=== PATIENT | male | born 1960 | race Caucasian/White ===

== ENCOUNTER → 2020-09-22 09:04 | Outpatient (CLI) | payer OTHER, SELFPAY ==
--- NOTE | ~2020-09-22 | MR_ITS ---
EXAMINATION: MR cervical spine wo con EXAM DATE: 09/22/2020 10:27 INDICATION: Left-sided neck pain, left shoulder pain, tingling. TECHNIQUE: Multi-sequential, multiplanar MR images of the cervical spine were obtained without contra st. Axial T2, axial T2 MERGE sequence. Sagittal T1, T2, T2 fat saturation images also obtained. Th ere is no prior study for comparison. FINDINGS: There is moderate loss of the disc height from C5 through 7, mild disc disease at the othe r levels. There is 2 mm anterolisthesis C5 on C6 and C6 on C7. The spinal cord signal intensity and i ntrinsic morphology is normal. Cervicomedullary junction is normal in appearance. Paraspinal soft tis mya is unremarkable. Level by level evaluation: C2-C3: Disc does not extend beyond the endplate margin. Uncovertebral joint arthropathy: Mild bilateral. Facet joint arthropathy: Mild bilateral. Neural foraminal stenosis: No stenosis. Central canal stenosis: No stenosis. C3-C4: There is a mild diffuse disc bulge. Uncovertebral joint arthropathy: Moderate right, mild left. Facet joint arthropathy: Severe right, moderate left. Neural foraminal stenosis: Moderate right, mild left. Central canal stenosis: Mild. C4-C5: There is a mild diffuse disc bulge. Uncovertebral joint arthropathy: Mild bilateral. Facet joint arthropathy: Severe left, mild to moderate right. Neural foraminal stenosis: Moderate bilateral. Central canal stenosis: Mild. C5-C6: There is a mild diffuse disc bulge. Uncovertebral joint arthropathy: Moderate right, mild left. Facet joint arthropathy: Moderate to severe bilateral . Neural foraminal stenosis: Moderate to severe right, mild to moderate left. Central canal stenosis: Mild. C6-C7: There is a mild diffuse disc bulge. Uncovertebral joint arthropathy: Mild to moderate bilateral. Facet joint arthropathy: Moderate to severe bilateral. Neural foraminal stenosis: Mild to moderate left, mild right. Central canal stenosis: Mild. C7-T1: Disc does not extend beyond the endplate margin. Uncovertebral joint arthropathy: Mild bilateral. Facet joint arthropathy: Moderate to severe right, mild to moderate left. Neural foraminal stenosis: Mild right. Central canal stenosis: No stenosis. IMPRESSION: Advanced cervical arthropathy causing stenosis as above. Reviewed, dictated and finalized at location B.
== END ==
PROVIDERS: PCP Family Medicine; Visit Provider Family Medicine
DX: M54.12 Radiculopathy, cervical region (principal); M47.812 Spondylosis without myelopathy or radiculopathy, cervical region
CPT/HCPCS: 72141

== ENCOUNTER 2021-10-23 08:57 | Emergency (ER) | payer OTHER, SELFPAY ==
--- NOTE | 2021-10-23 09:08 | ED.ANIMALBIT ---
HPI - Animal Bite General Chief Complaint: Skin/Abscess/Foreign Body Stated Complaint: Bug bite Time Seen by Provider: 10/23/21 09:08 Source: patient Mode of arrival: ambulatory History of Present Illness HPI narrative: 60-year-old male with a history diabetes mellitus, dyslipidemia cervical radiculopathy presents to the ER with a 3 day history of -- circular erythematous rash with central clearing around the medial ankle. progressively increasing in size. there appears to be a puncture lesion in the center of the rash denies any pain or itching. No fever or chills Onset (ago): day(s) ( present for the past 3 days) Animal: other ( appears to be an insect bite) Location - Extremities: Left: ankle Related Data Home Medications Medication Instructions Recorded Confirmed fluticasone propionate 50 1 spray intranasal BID 09/12/20 10/23/21 mcg/actuation nasal spray,suspension Allergies Allergy/AdvReac Type Severity Reaction Status Date / Time Penicillins Allergy Mild Unknown Verified 06/01/19 13:35 Review of Systems Review of Systems: All systems reviewed & are unremarkable except as noted in HPI and below Constitutional: Constitutional: Reports as per HPI and Reports no additional constitutional complaints Eyes: Eyes: Reports as per HPI and Reports no additional eye complaints ENT: Reports system reviewed and no additional complaints, except as documented and Reports as per HPI Cardiovascular: Cardiovascular: Reports as per HPI and Reports no additional cardiovascular complaints Respiratory: Respiratory: Reports as per HPI and Reports no additional respiratory complaints Gastrointestinal: Gastrointestinal: Reports as per HPI and Reports no additional gastrointestinal complaints Genitourinary: Genitourinary: Reports no additional male genitourinary complaints and Reports as per HPI Musculoskeletal: Musculoskeletal: Reports no additional musculoskeletal complaints and Reports as per HPI Integumentary/Breasts: Skin/Breast: Reports system reviewed and no additional complaints, except as docu Comments: 8 cm circular erythematous rash with central clearing. There is a bite janeth in the center . No regional lymphadenopathy Neurologic: Reports system reviewed and no additional complaints, except as documented and Reports as per HPI Psychiatric: Psychiatric: Reports no additional psychiatric complaints and Reports as per HPI Endocrine: Endocrine: Reports no additional endocrine complaints and Reports as per HPI Hematologic/Lymphatic: Hematologic/Lymphatic: Reports no additional hematologic/lymphatic complaints and Reports as per HPI Allergic/Immunologic: Allergic/Immunologic: Reports no additional allergic/immunologic complaints and Reports as per HPI [facility] Past Medical History Medical History Abnormal serum iron level Iron elevated at 197 with elevated saturation at 66% with ferritin normal at 312 10/02/2021. BMI 25.0-25.9,adult BPH without obstruction/lower urinary tract symptoms Chronic right shoulder pain Controlled diabetes mellitus Glucose 124 with hemoglobin A1c 6.5 and urine microalbumin ratio of 3 on 10/02/2021. Gastro-esophageal reflux disease without esophagitis Insomnia Male erectile dysfunction, unspecified Mixed hyperlipidemia Total cholesterol 122, triglycerides 130, HDL 39, LDL 62 on 10/02/2021. Overweight (BMI 25.0-29.9) Radiculitis of left cervical region MRI on 09/22/2020 with moderate to severe neural foraminal stenosis bilaterally from C3 through T1 Seasonal allergic rhinitis Family History Family History Mother Cerebrovascular accident Father Cancer Social History Social History Smoking status: Never smoker Alcohol intake: current Alcohol use details: drinks a small amount every couple months S
[2021-10-23 09:16] VITALS: BP 123/77; PULSE 71; RESP 16; TEMP 36.2; O2SAT 98
[2021-10-23] MEDS: TETANUS,DIPHTHERIA,AC PERTUSSIS ADULT 0.5 ML (ADACEL) IM (09:57)
== END 2021-10-23 10:05 | disposition home or self-care (01) ==
PROVIDERS: Emergency Provider Internal Medicine Critical Care Medicine; PCP Family Medicine
DX: L03.90 Cellulitis, unspecified (principal)
CPT/HCPCS: 90471; 90715; 99283

== ENCOUNTER 2022-07-16 06:33 | Outpatient (CLI) | payer OTHER, SELFPAY ==
--- NOTE | 2022-07-16 | ECG_ITS ---
Measurements Intervals [place] Rate: 54 P: 27 SD: 191 QRS: -50 QRSD: 116 T: -4 QT: 397 QTc: 379 Interpretive Statements SINUS BRADYCARDIA LEFT ANTERIOR FASCICULAR BLOCK MODERATE VOLTAGE CRITERIA FOR LVH, CONSIDER NORMAL VARIANT CaNNOT RULE OUT ANTEROSEPTAL INFARCTION, OF INDETERMINATE AGE ABNORMAL ECG NO PREVIOUS ECG AVAILABLE FOR COMPARISON Electronically Signed On 07-16-2022 14:13:09 HEAVY TRUCK TECHNICIAN by Houston Dorman M.D.
== END 2022-07-16 06:34 | disposition home or self-care (01) ==
LOC: ANHLAB 06:38 → ANHCARD 06:39
PROVIDERS: PCP Family Medicine; Visit Provider Orthopaedic Surgery
DX: Z01.818 Encounter for other preprocedural examination (principal); I44.4 Left anterior fascicular block; R00.1 Bradycardia, unspecified
CPT/HCPCS: 93005

== ENCOUNTER → 2023-03-21 07:59 | Outpatient (CLI) | payer OTHER, SELFPAY ==
--- NOTE | ~2023-03-21 | MR_ITS ---
EXAMINATION: MR cervical spine wo con DATE: 03/21/2023 08:29 INDICATION: Cervical radiculopathy. Left neck pain. TECHNIQUE: Magnetic resonance imaging (MRI) of the cervical spine was performed without intravenous c ontrast. COMPARISON: Cervical spine MRI 09/22/2020 FINDINGS: There is 2 mm anterolisthesis of C6 on C7. There is mild chronic anterior wedging of T1 devyn tebral body. There is mildly decreased disc height at C4-C5 and moderately decreased disc height at C 5-C6 and C6-C7. The following disc levels are specifically discussed: C2-C3: The disc does not extend beyond the endplate margin. There is no uncovertebral joint osteoarth ritis. There is mild bilateral facet joint osteoarthritis. There is no neural foraminal stenosis. The re is no central canal stenosis. C3-C4: The disc does not extend beyond the endplate margin. There is severe right and moderate left u ncovertebral joint osteoarthritis. There is severe bilateral facet joint osteoarthritis. There is mod erate right and mild left neural foraminal stenosis. There is no central canal stenosis. C4-C5: The disc is bulging. There is moderate bilateral uncovertebral joint osteoarthritis. There is severe bilateral facet joint osteoarthritis. There is moderate bilateral neural foraminal stenosis. T here is mild central canal stenosis with ventral indentation of the spinal cord. C5-C6: The disc is bulging. There is severe bilateral uncovertebral joint osteoarthritis. There is se raul bilateral facet joint osteoarthritis. There is moderate right and mild left neural foraminal andreina nosis. There is mild central canal stenosis. C6-C7: The disc is bulging. There is mild bilateral uncovertebral joint osteoarthritis. There is isaias re bilateral facet joint osteoarthritis. There is mild bilateral neural foraminal stenosis. There is mild central canal stenosis. C7-T1: The disc does not extend beyond the endplate margin. There is no uncovertebral joint osteoarth ritis. There is severe bilateral facet joint osteoarthritis. There is mild bilateral neural foraminal stenosis. There is no central canal stenosis. IMPRESSION: 1. Moderate cervical spondylosis, stable from 09/22/2020. Reviewed, dictated and finalized at location E.
== END ==
PROVIDERS: PCP Nurse Practitioner Family; Visit Provider Nurse Practitioner Family
DX: M54.12 Radiculopathy, cervical region (principal); M43.02 Spondylolysis, cervical region
CPT/HCPCS: 72141

== ENCOUNTER 2023-09-05 09:30 | Outpatient (CLI) | payer OTHER, SELFPAY ==
--- NOTE | ~2023-09-05 | MR_ITS ---
MRI of the right knee Clinical history: Medial meniscal tear Technique: Coronal proton density and proton density-weighted images, sagittal proton-density and T2 fat-sat images, and axial proton-density fat-saturated images were acquired. Findings: Anterior and posterior cruciate ligaments are intact. Medial collateral ligament and the la teral collateral ligament, as are intact. Popliteus tendon is intact. Medial and lateral menisci are intact, without evidence of tear. There is diffuse grade 4 chondral malacia the lateral patellar facet extending to the patellar apex. There is extensive grade IV chondromalacia of the lateral femoral trochlea. Articular cartilage in th e medial lateral compartments is relatively well-preserved, with focal moderate thinning at the media l joint line. Small patellar osteophytes are present. Extensor mechanism is intact. Minimal joint effusion present. There are small Harrell's cyst present. T here is an additional complex multiseptated ganglion cyst posterior to the knee, measuring approximat jaleel 3.5 cm in craniocaudal extent. There are several loose bodies posterior to the PCL, largest measu ring 1.4 cm in diameter. Impression: Advanced degenerative change of the patellofemoral compartment, as detailed above. Minimal degenerati ve change of the medial and lateral compartment. Loose bodies in the posterior aspect of the knee, as detailed above. 3.5 cm multiseptated ganglion cyst posterior to the knee with additional small Harrell cyst present. Cruciate ligaments, collateral ligaments, and menisci appear intact. Reviewed, dictated and finalized at [facility]. Impression: Advanced degenerative change of the patellofemoral compartment, as detailed abo ve. Minimal degenerative change of the medial and lateral compartment. Loose bodies in the posterior aspect of the knee, as detailed above. 3.5 cm multiseptated ganglion cyst posterior to the knee with additional small Harrell cyst present. Cruciate ligaments, collateral ligaments, and menisci appear intact.
== END 2023-09-05 09:31 ==
LOC: MICIMG 09:31
PROVIDERS: PCP Orthopaedic Surgery; Visit Provider Orthopaedic Surgery
DX: S83.241A Other tear of medial meniscus, current injury, right knee, initial encounter (principal); M22.2X1 Patellofemoral disorders, right knee; M23.41 Loose body in knee, right knee; M67.461 Ganglion, right knee; M71.21 Synovial cyst of popliteal space [Baker], right knee; X58.XXXA Exposure to other specified factors, initial encounter
CPT/HCPCS: 73721

== ENCOUNTER 2024-08-05 13:14 | Outpatient (CLI) | payer OTHER, SELFPAY ==
--- NOTE | 2024-08-05 14:30 | NEURO_ITS ---
Impression: # Nondiabetic and long-term martel by profession, complains of numbness and stiffness of his hands. ? # Mild Carpal Tunnel Syndrome. # No ulnar neuropathy. ? # Normal needle/EMG exam. Nerve Conduction Studies Anti Sensory Summary Table ?Stim Site NR Peak (ms) P-T Amp (?V) Site1 Site2 Delta-P (ms) Dist (cm) Jordy (m/s) Left Median Anti Sensory (2-3nd Digit) Wrist ? 3.3 46.0 Wrist 2-3nd Digit 3.3 14.0 42 Wrist ? 3.2 48.3 Wrist 2-3nd Digit 3.3 14.0 42 Right Median Anti Sensory (2-3nd Digit) Wrist ? 3.2 39.3 Wrist 2-3nd Digit 3.2 14.0 44 Wrist ? 3.1 32.8 Wrist 2-3nd Digit 3.2 14.0 44 Left Radial Anti Sensory (Base 1st Digit) Wrist ? 2.1 39.1 Wrist Base 1st Digit 2.1 0.0 Right Radial Anti Sensory (Base 1st Digit) Wrist ? 2.4 17.6 Wrist Base 1st Digit 2.4 0.0 Left Ulnar Anti Sensory (5th Digit) Wrist ? 2.5 15.3 Wrist 5th Digit 2.5 14.0 56 Right Ulnar Anti Sensory (5th Digit) Wrist ? 2.4 33.1 Wrist 5th Digit 2.4 14.0 58 Motor Summary Table ?Stim Site NR Onset (ms) O-P Amp (mV) Site1 Site2 Delta-0 (ms) Dist (cm) Jordy (m/s) Left Median Motor (Abd Poll Brev) Wrist ? 4.3 2.3 Elbow Wrist 5.0 30.0 60 Elbow ? 9.3 8.7 Right Median Motor (Abd Poll Brev) Wrist ? 3.4 3.1 Elbow Wrist 4.9 29.0 59 Elbow ? 8.3 3.3 Left Ulnar Motor (Abd Dig Minimi) Wrist ? 2.3 8.4 A Elbow Wrist 5.0 31.0 62 A Elbow ? 7.3 6.3 B Elbow Wrist 3.4 21.0 62 B Elbow ? 5.7 4.9 Right Ulnar Motor (Abd Dig Minimi) Wrist ? 2.0 8.9 A Elbow Wrist 4.9 30.0 61 A Elbow ? 6.9 11.2 F Wave Studies ?NR F-Lat (ms) L-R F-Lat (ms) Left Median (Mrkrs) (Abd Poll Brev) ? 29.21 0.39 Right Median (Mrkrs) (Abd Poll Brev) ? 28.81 0.39 Left Ulnar (Mrkrs) (Abd Dig Min) ? 28.40 0.41 Right Ulnar (Mrkrs) (Abd Dig Min) ? 27.99 0.41 EMG ?Side Muscle Nerve Root Ins Act Fibs Amp Dur Recrt Comment Right 1stDorInt Ulnar C8-T1 Nml Nml Nml Nml Nml Right Ext Indicis Radial (Post Int) C7-8 Nml Nml Nml Nml Nml Right Ext Digitorum Radial (Post Int) C7-8 Nml Nml Nml Nml Nml Right BrachioRad Radial C5-6 Nml Nml Nml Nml Nml Right PronatorTeres Median C6-7 Nml Nml Nml Nml Nml Right Abd Poll Brev Median C8-T1 Nml Nml Nml Nml Nml Right ABD Dig Min Ulnar C8-T1 Nml Nml Nml Nml Nml Left 1stDorInt Ulnar C8-T1 Nml Nml Nml Nml Nml Left Ext Indicis Radial (Post Int) C7-8 Nml Nml Nml Nml Nml Left Ext Digitorum Radial (Post Int) C7-8 Nml Nml Nml Nml Nml Left BrachioRad Radial C5-6 Nml Nml Nml Nml Nml Left PronatorTeres Median C6-7 Nml Nml Nml Nml Nml Left Abd Poll Brev Median C8-T1 Nml Nml Nml Nml Nml Left ABD Dig Min Ulnar C8-T1 Nml Nml Nml Nml Nml MTDD
--- OUTSIDE RECORDS SUMMARY | 2024-08-05 14:40 | XMS_ITS | Clinical Summary ---
Author Organization [facility] Address [address], [address] [address] Phone Care Team Providers Care Electrical Plumbing Supervisor Name Role Phone Tom Travis MD Primary Care Provider [phone] Allergies No known active allergies Medications naproxen (NAPROSYN) 500 MG Tablet Take 500 mg by mouth daily as needed. (Takes 1 tab approx every 2-3 weeks as needed.) Active OMEPRAZOLE PO Take 20 mg by mouth daily. Active fenofibrate (TRICOR) 145 MG Tablet Take 145 mg by mouth daily. Active metFORMIN (GLUCOPHAGE) 500 MG Tablet Take 1,500 mg by mouth daily. Takes at dinner time. Active Acetaminophen-Ca ffeine (EXCEDRIN TENSION HEADACHE PO) Take by mouth. 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 file Not on adam e Last Filed Vital Signs Vital Sign Reading Time Taken Comments Blood Pressure 127/79 10/23/2018 9:30 AM CDT Pulse 54 10/23/2018 9:30 AM CDT Temperature 36 C (96.8 F) 10/23/2018 9:30 AM CDT Respiratory Rate 15 10/23/2018 9:30 AM CDT Oxygen Saturation 100% 10/23/2018 9:30 AM CDT Inhaled Oxygen Concentration - - Weight 83.9 kg (185 lb) 10/23/2018 7:30 AM CDT Height 177.8 cm (5' 10 ) 10/23/2018 7:30 AM CDT Body Mass Index 26.54 10/23/2018 7:30 AM CDT Plan of Treatment Health Maintenance Due Date Last Done Comments Hepatitis C Virus (HCV) Screening 1960 TdaP Immunization 1960 Cologuard 2010 Immunochemical Fecal Occult Blood 2010 Pneumococcal Immunization (5 0+ years) (1 of 1 - PCV) 2010 Zoster Immunization (1 of 2) 2010 PSA Discussion 12/24/2015 Colonoscopy 10/24/2023 10/23/2018 Colorectal Cancer Screening 10/24/2023 Influenza Immunization (#1) 2024 SARS-COV-2 Immunization ( - 2023-25 season) 2024 Respiratory Syncytial Virus (RSV) Immunization (Adult) (1 - 1-dose 75+ series) 12/24/2035 10/23/2018 Hepatitis B Immunization Aged Out No longer eligible based on patient's age to complete this topic Meningococcal Immunization (ACWY) Aged Out No longer eligible based on patient's age to complete this topic Pneumococcal Immunization Combined Aged Out No longer eligible based on patient's age to complete this topic Rotavirus Immunization Aged Out No lo nger eligible based on patient's age to complete this topic Care Teams Electrical Plumbing Supervisor Relationship Specialty Start Date End Date Tom Travis MD [address] [address] PCP - General Family Medicine 04/01/18
--- OUTSIDE RECORDS SUMMARY | 2024-08-05 14:40 | XMS_ITS | Referral Summary ---
Author Organization [facility] Address [facility] [place] [address] Care Team Providers Care Welding Machine Operator Resistance Name Role Phone Tom Travis MD Primary Care Provider [phone] Allergies Active Allergy Reactions Criticality Noted Date Comments Penicillins Hives Medium 06/10/2019 Medications fenofibrate nanocrystallized (TRICOR) 145 mg tablet Take 145 mg by mouth customer greeter before breakfast 06/01/19 20 Active metFORMIN XR (GLUCOPHAGE XR) 500 mg 24 hr tablet 2,000 mg nightly 06/01/19 20 Active naproxen (NAPROSYN) 500 mg tablet 06/01/19 20 Active omeprazole (PriLOSEC) 20 mg capsule Take 20 mg by mouth customer greeter before breakfast 06/01/19 20 Active Active Problems Problem Noted Date Diagnosed Date Arthropathy of hand 06/09/2019 Osteoarthritis 06/09/2019 Derangement of knee 06/09/2019 Disorder of shoulder 06/09/2019 Incomplete tear of rotator cuff 06/09/2019 Knee pain 06/09/2019 Shoulder joint pain 06/09/2019 Synovitis and tenosynovitis 06/09/2019 Nontraumatic complete tear of right rotator cuff 06/09/2019 Overview (06/09/2019): Added automatically from request for surgery [id number] Biceps tendinitis of right shoulder 06/09/2019 Overview (06/09/2019): Added automatically from request for surgery [id number] Social History Tobacco Use Types Packs/Day Years Used Date Smoking Tobacco: Never Smokeless Tobacco: Never Tobacco Cessation:Counseling Given: No Alcohol Use Standard Drinks/Week Comments Not Currently 0 (1 standard drink = 0.6 oz pur e alcohol) rare Sex and Gender Information Value Date Recorded Sex Assigned at Not on file Legal Sex Male 6:09 PM MACHINE GRINDER Gender Identity Not on file Sexual Orientation Not on file Last Filed Vital Signs Vital Sign Reading Time Taken Comments Blood Pressure 130/89 06/15/2019 11:00 AM MACHINE GRINDER Pulse 75 06/15/2019 11:00 AM MACHINE GRINDER Temperature 36 C (96.8 F) 06/15/2019 10:19 AM MACHINE GRINDER Respiratory Rate 14 06/15/2019 11:00 AM MACHINE GRINDER Oxygen Saturation 97% 06/15/2019 11:00 AM MACHINE GRINDER Inhaled Oxygen Concentration - - Weight 81.6 kg (180 lb) 06/10/2019 2:40 PM MACHINE GRINDER Height 177.8 cm (5' 10 ) 06/10/2019 2:40 PM MACHINE GRINDER Body Mass Index 25.83 06/10/2019 2:40 PM MACHINE GRINDER Plan of Treatment Not on file Medical Devices Implanted Type Area Switchboard Wirer Device Identifier Shelf Expiration Date Model / Serial / Lot [employer] [id number] Swivelock C 4.75mm 19.1mm Closed Eyelet Vent Odum Suture - [id number] Implanted:Qty: 1 on 06/15/2019 by Ari Mayers MD at [facility] [employer] 04/18/2023 [id number] / / [id number] [employer] Ar-2290 Fiberloop 3.2mm Drill Pin Needle Shoehorn Cannula Kit Suture - [id number] Implanted:Qty: 1 on 06/15/2019 by Ari Mayers MD at [facility] [employer] 12/18/2023 AR-[id number] / / [id number] Insurance [employer] Care Teams Welding Machine Operator Resistance Relationship Specialty Start Date End Date Tom Travis MD [address] [address] PCP - General Family Medicine 06/09/19
--- OUTSIDE RECORDS SUMMARY | 2024-08-05 14:40 | XMS_ITS | Data Portability ---
Author Organization [place] [facility], Chay Denney Address [address] [place] [address] Assessment Encounter Date Assessment Date Assessment LastModified by Organization Details LastModified Time 04/20/2024 04/20/2024 The patient will benefit from healthcare analyst and supporting therapies to conservatively manage pain and help facilitate a return to max functional capability. The patient's progress is dependent on patient compliance regarding home therapies and following the recommended treatment plan. Treatment Plan: It is recommended that the patient receive healthcare analyst 2 times per month for 1 month receiving adjustments, 1 time per month for 6 months MT, IFC, and heat. Co-Treatment: MT Contraindications : None Patient Treatment Preference: N/A Visit Count: 04/26- Re-evaluation at next visit. Patient usually self-schedules Not available 04/20/2024 11:22:21 05/27/2024 05/27/2024 Assessment and Plan Assessment: patient tolerated session well Plan: My area of focus will be on what the patient presented with. Recommendation: massage Follow Up Visit: 4 weeks [email or web address] Not available 05/27/2024 14:22:44 05/27/2024 05/27/2024 The patient will benefit from healthcare analyst and supporting therapies to conservatively manage pain and help facilitate a return to max functional capability. The patient's progress is dependent on patient compliance regarding home therapies and following the recommended treatment plan. Treatment Plan: It is recommended that the patient receive healthcare analyst 2 times per month for 1 month receiving adjustments, 1 time per month for 6 months MT, IFC, and heat. Co-Treatment: MT Contraindications : None Patient Treatment Preference: N/A Visit Count: 13 Not available 05/27/2024 11:22:25 08/03/2024 08/03/2024 The patient will benefit from healthcare analyst and supporting therapies to conservatively manage pain and help facilitate a return to max functional capability. The patient's progress is dependent on patient compliance regarding home therapies and following the recommended treatment plan. Treatment Plan: It is recommended that the patient receive healthcare analyst 1 time per month for 6 months receiving adjustments, MT, IFC, and heat. Co-Treatment: MT Contraindications : None Patient Treatment Preference: N/A Visit Count: 0/6 Not available 08/03/2024 15:39:09 08/03/2024 08/03/2024 Assessment and Plan Assessment: patient tolerated session well Plan: My area of focus will be on what the patient presented with. Recommendation: 1 of 4 massage Follow Up Visit: 4 weeks [email or web address] Not available 08/03/2024 16:14:47 Plan of Treatment Reminders Order Date Submit Date Provider Last Modified By Organization Details Last Modified Time Details Appointments InPerson; Chiroprac tic F/U 2024 10:00A M Nicole Bauer DC Not available Not available Not available InPerson; Massage (60 min) 2024 10:00A M Xavi Talbot MT Not available Not available Not available InPerson; Chiroprac tic F/U 2024 11:00A M Nicole Bauer DC Not available Not available Not available Lab None recorded. Referral None recorded. Procedures None recorded. Surgeries None recorded. Imaging None recorded. Medication Orders None recorded. Patient Targets Encounter Date Encounter Id Patient Goals Patient Target Last Modified By Organization Details Last Modified Time Decrease re-occurrenc e of back injuries. Continue to stay pain free in the cervical spine. Not available 08/03/2024 15:40:56 Patient InstructionsNo instructions recorded. Reason for Referral None Reported. Problems Name Problem SNOMED Code Status Onset Date Resolution Date Notes Provider Name and Address Organization Details Recorded Time Neck pain 89210568 Active 2022 Nicole Bauer DC [address], [place], [address] , [place] [facility] 3 09:53:44 Muscle spasm of cervical muscle of neck 40225038512 4 Active 2022 Nicole Bauer [place] [address], [place], [address] , [place] [facility] 3 10:00:29 Thoracic segmental dysfuncti on 473073811 Active 2022 Nicole Bauer DC [address], [place], [address] , [place] [facility] 3 10:01:40 Lumbar segmental dysfuncti on 781506240 Active 2022 Nicole Bauer DC [address], [place], [address] , [place] [facility] 3 10:01:50 Somatic dysfuncti on of pelvic region 984765438 Active 2022 Nicole Bauer DC [address], [place], [address] , [place] [facility] 3 10:03:17 Somatic dysfuncti on of lumbar region 581429083 Active 2022 Nicole Bauer DC [address], [place], [address] , [place] [facility] 3 12:26:50 Chronic neck pain 75584744522 07 Active 2022 Ashlyn Hanna [place] [address], [place], [address] , [place] [facility] 3 15:02:32 Hyperlipi demia 66450049 Active 2022 Hyperlipi demia; PROBABILI TY: 0 Confirm ation: Confirmed Annotate dDisplay: Hyperlipi demia Cla ssificati on: Medical Not Available [facility] 4 18:52:05 Diabetes mellitus 61557832 Active 2022 Diabetes mellitus; PROBABILI TY: 0 Confirm ation: Confirmed Annotate dDisplay: Diabetes mellitus Classific ation: Medical Not Available [facility] 4 18:52:06 Pain of right knee joint 83387070717 4100 Active 2023 Ashlyn Hanna [place] [address], [place], [address] , [place] [facility] 4 12:05:37 Chronic thoracic back pain 89148962791 9103 Active 2023 Ashlyn Hanna [place] [address], [place], [address] , [place] [facility] 4 13:45:09 Low back pain 772133953 Active 2023 Ashlyn Hanna [place] [address], [place], [address] , [place] [facility] 4 11:23:53 Cervical segmental dysfuncti on 855618458 Active 2024 Nicole Bauer DC [address], [place], [address] , [place] [facility] 5 15:23:41 Pain of left hip joint 20798713567 9100 Active 2024 Antione kunz, [place] [facility] 5 16:14:59 Pain in right hip joint 37802216131 9102 Active 2024 Antione kunz, [place] [facility] 5 16:15:03 Problem Notes None recorded. Procedures Surgical History Date Name Laterality Status Provider Name and Address Organization Details Recorded Time 12/02/19 Manual Therapy completed Nicole Bauer DC [address], [place], [address], [place] [facility] 12/02/2023 09:53:42 12/02/19 24 51783: Mechanical Traction completed Nicole Bauer DC [address], [place], [address], [place] [facility] 12/02/2023 09:53:42 11/04/19 24 72737: Massage completed Ashlyn Hanna [place] [address], [place], [address], [place] [facility] 11/04/2023 13:44:59 11/04/19 Manual Therapy completed Nicole Bauer DC [address], [place], [address], [place] [facility] 11/04/2023 11:20:48 11/04/19 24 13775: Mechanical Traction completed Nicole Bauer DC [address], [place], [address], [place] [facility] 11/04/2023 11:20:03 11/04/19 49494: Chiropractic Manipulative Treatment (CMT) Spinal 3-4 regions completed Nicole Bauer DC [address], [place], [address], [place] [facility] 11/04/2023 10:52:56 09/11/19 32312: Massage completed Ashlyn Hanna [place] [address], [place], [address], [place] [facility] 09/11/2023 12:05:28 09/11/19 Manual Therapy completed Nicole Bauer DC [address], [place], [address], [place] [facility] 09/11/2023 10:51:34 09/11/19 91927: Mechanical Traction completed Nicole Bauer DC [address], [place], [address], [place] [facility] 09/11/2023 10:25:15 09/11/19 17607: Chiropractic Manipulative Treatment (CMT) Spinal 3-4 regions completed Nicole Bauer DC [address], [place], [address], [place] [facility] 09/11/2023 10:25:15 08/14/19 03529: Massage completed Ashlyn Hanna [place] [address], [place], [address], [place] [facility] 08/14/2023 14:20:43 08/14/19 Manual Therapy completed Nicole Bauer DC [address], [place], [address], [place] [facility] 08/14/2023 12:33:37 08/14/19 62729: Mechanical Traction completed Nicole Bauer DC [address], [place], [address], [place] [facility] 08/14/2023 12:33:37 08/14/19 71130: Chiropractic Manipulative Treatment (CMT) Spinal 3-4 regions completed Nicole Bauer DC [address], [place], [address], [place] [facility] 08/14/2023 12:33:37 07/17/19 24 Manual Therapy completed Nicole Bauer DC [address], [place], [address], [place] [facility] 07/17/2023 14:28:38 07/17/19 24 80230: Mechanical Traction completed Nicole Bauer DC [address], [place], [address], [place] [facility] 07/17/2023 14:28:34 07/17/19 24 12397: Chiropractic Manipulative Treatment (CMT) Spinal 3-4 regions completed Nicole Bauer DC [address], [place], [address], [place] [facility] 07/17/2023 14:23:07 06/26/19 24 34074: Massage completed Ashlyn Hanna [place] [address], [place], [address], [place] [facility] 06/26/2023 15:30:43 06/26/19 24 Manual Therapy completed Nicole Bauer DC [address], [place], [address], [place] [facility] 06/26/2023 14:50:22 06/26/19 24 57770: Mechanical Traction completed Nicole Bauer DC [address], [place], [address], [facility] 06/26/2023 14:50:11 06/26/19 24 08321: Chiropractic Manipulative Treatment (CMT) Spinal 3-4 regions completed Nicole Bauer DC [address], [place], [address], [place] [facility] 06/26/2023 14:46:39 06/07/19 24 85332: Massage completed Ashlyn Hanna [place] [address], [place], [address], [place] [facility] 06/07/2023 12:41:48 05/23/19 24 97951: Massage completed Ashlyn Hanna [place] [address], [place], [address], [place] [facility] 05/23/2023 13:20:10 05/23/19 24 58933: Hot or Cold Pack completed Lester Rocha DC [address], [place], [address], [place] [facility] 05/23/2023 11:05:55 05/23/19 24 88182: Electrical Stimulation (unattended) completed Lester Rocha DC [address], [place], [address], [place] [facility] 05/23/2023 11:13:27 05/23/19 24 91257: Chiropractic Manipulative Treatment (CMT) Spinal 3-4 regions completed Lester Rocha DC [address], [place], [address], [place] [facility] 05/23/2023 11:13:41 04/29/20 Manual Therapy completed Nicole Bauer DC [address], [place], [address], [facility] 04/29/2023 12:31:25 04/29/20 23 25069: Hot or Cold Pack completed Nicole Bauer DC [address], [place], [address], [place] [facility] 04/29/2023 12:32:29 04/29/20 23 92502: Electrical Stimulation (unattended) completed Nicole Bauer DC [address], [place], [address], [place] [facility] 04/29/2023 12:32:38 04/29/20 23 35092: Chiropractic Manipulative Treatment (CMT) Spinal 3-4 regions completed Nicole Bauer DC [address], [place], [address], [place] [facility] 04/29/2023 12:31:22 04/29/20 23 42693: Massage completed Ashlyn Hanna [place] [address], [place], [address], [place] [facility] 04/29/2023 15:02:25 04/24/20 23 Manual Therapy cancelled Nicole Bauer DC [address], [place], [address], [place] [facility] 04/24/2023 09:55:15 04/24/20 23 62051: Hot or Cold Pack cancelled Nicole Bauer DC [address], [place], [address], [facility] 04/24/2023 09:55:28 04/24/20 96166: Electrical Stimulation (unattended) cancelled Nicole Bauer DC [address], [place], [address], [facility] 04/24/2023 09:55:21 04/24/20 03999: Chiropractic Manipulative Treatment (CMT) Spinal 3-4 regions cancelled Nicole Bauer DC [address], [place], [address], [facility] 04/24/2023 09:55:03 Imaging Results None recorded. Procedure Notes None recorded. Medical Equipment None Reported. Allergies Allergen ID Allergen Name Allergen Category Reaction Reaction Severity Criticality Documentation Date Start Date Code Code System Note Provider Name and Address Organization Details Recorded Time 163565 No Allergy Informati on Available Not available Not available Not available Not available 09/05/2023 74138 UNK Comme nt: React ion Class : Aller gy; [facility] 14:14:12 570943 Product containin g penicilli n (product) medicatio n Not available Not available Not available 08/03/2024 78180 8001 SNOMED Devika kunz, [facility] 15:00:34 Medications Name Sig Start Date Stop Date Status Note LastModified by Organization Details LastModified Time cyclobenz aprine 10 mg tablet 1 tab(s) Oral tid,PRN: for spasm,In str:use qd prn spasm; (use with caution may make drowsy) 2022 active PRNInstr uctions: for spasm St opType: Physicia n Stop Abdi gIdentif icationN umber: [id number] S cheduled PRN: Yes Tota lRefills : 0 Consta ntIndica tor: No CSASc hedule: 0 active _status_ dt_tm: 11:09:34 AM Not Available Not Available Not Available metformin 500 mg tablet 2022 active StopType : Soft Stop Abdi gIdentif icationN umber: [id number] S cheduled PRN: No Total Refills: 0 Consta ntIndica tor: Yes CSAS chedule: 0 active _status_ dt_tm: 3 10:14:17 AM Not Available Not Available Not Available prednison e 10 mg tablet TAKE 1 TABLET BY MOUTH TWICE A DAY active Not Available Not Available No t Available hydrocodo ne 5 mg-acetam inophen 325 mg tablet TAKE 1 TABLET BY MOUTH EVERY 6 HOURS active Not Available Not Available No t Available ketorolac 30 mg/mL (1 mL) injection solution 11/28 completed StopType : Physicia n Stop Abdi Araiza umber: [id number] N extDoseD ate: 3 10:42:00 AM Const antIndic ator: No CSASc hedule: 0 active _status_ dt_tm: 3 10:44:38 AM Not Available Not Available Not Available BD Luer-Kadie Syringe 3 mL 23 gauge x 1 1/2 TO USE FOR TESTOSTE JARED INJECTIO NS active Not Available Not Available No t Available Lidoderm 5 % topical patch 1 patch(es ) Topical daily,x3 0 days 12/09 completed Duration : 30 Durat ionUnit: days Sto pType: Physicia n Stop Abdi Araiza umber: [id number] T otalRefi lls: 0 Consta ntIndica tor: Yes CSAS chedule: 0 active _status_ dt_tm: 3 11:09:34 AM Not Available Not Available Not Available amitripty line 10 mg tablet active Not Available Not Available No t Available omeprazol e 20 mg capsule,d elayed release active Not Available Not Available Not Available diclofena c sodium 75 mg tablet,de layed release TAKE 1 TABLET BY MOUTH TWICE DAILY active Not Available Not Available No t Available testoster one cypionate 200 mg/mL intramusc ular oil INJECT 1ML INTRAMUS CULARLY EVERY 2 WEEKS active Not Available Not Available No t Available zolpidem 10 mg tablet TAKE 1 TABLET BY MOUTH ONCE DAILY AT BEDTIME NEEDED FOR INSOMNIA active Not Available Not Available No t Available BD Luer-Kadie Syringe 3 mL 18 x 1 1/2 active Not Available Not Available Not Available metformin ER 500 mg tablet,ex tended release 24 hr active Not Available Not Available Not Available naproxen 500 mg tablet active Not Available Not Available Not Available BD Regular Bevel [place] 25 gauge x 1 05/21 active Not Available Not Available Not Available fenofibra te nanocryst allized 145 mg tablet active Not Available Not Available Not Available Vitals Date Recorded Body temperature Oxygen saturation Oxygen saturation in Arterial blood by Pulse oximetry Heart rate Body height Systolic blood pressure Diastolic blood pressure Provider Name and Address Organization Details Last Updated DateTime 5 97.9 [degF] 99 % 99 % 57 /min 177.8 cm 114 mm[Hg] 73 mm[Hg] Devika Cevallos [place] [facility] 5 15:02:14 Social History None recorded. Functional Status None recorded. Mental Status None recorded. Family History Nothing Reported Notes:Father: Diabetes matt middleton Medical History No medical history recorded. Past Encounters Encounter ID Performer Location Encounter Start Date Encounter Closed Date Diagnosis/Indication Diagnosis SNOMED-CT Code Diagnosis ICD10 Code Diagnosis Note [id number] Nicole Bauer DC [address] [address] 04/29/2023 14:56:35 04/29/2023 15:24:02 Neck pain 37245686 M54.2 Thoracic s egmental dysfunction 762414799 M99.02 Somatic dy sfunction of lumbar region 529370270 M99.03 Somatic dy sfunction of pelvic region 226882175 M99.05 [id number] Ashlynshekhar Hanna[address] [address] 04/29/2023 14:05:23 04/29/2023 15:03:36 Chronic neck pain 7164458884 107 M54.2 [id number] Lester Rocha DC [address] [address] 05/23/2023 10:55:36 05/23/2023 11:15:11 Neck pain 85384434 M54.2 Thoracic s egmental dysfunction 014891294 M99.02 Somatic dy sfunction of lumbar region 771057648 M99.03 Somatic dy sfunction of pelvic region 183323008 M99.05 [id number] Ashlyn Jacques[address] [address] 05/23/2023 11:40:46 05/23/2023 13:21:01 Chronic neck pain 7622593525 107 M54.2 [id number] Ashlyn Hanna[address] [address] 06/07/2023 10:50:02 06/07/2023 12:42:47 Chronic neck pain 1227889224 107 M54.2 [id number] Nicole Bauer [address] [address] 06/26/2023 13:51:36 06/26/2023 14:51:24 Neck pain 16684078 M54.2 Thoracic s egmental dysfunction 277024917 M99.02 Somatic dy sfunction of lumbar region 525653896 M99.03 Somatic dy sfunction of pelvic region 174257020 M99.05 Muscle spa sm of cervical muscle of neck 7851217667 04 M62.838 Lumbar seg mental dysfunction 679700022 M99.03 Chronic neck pain 422701 9917 107 M54.2 [id number] Ashlyn Hanna[address] [address] 06/26/2023 14:30:45 06/26/2023 15:31:21 Chronic neck pain 3458443143 107 M54.2 [id number] Nicole Bauer[address] [address] 07/17/2023 13:41:33 07/17/2023 14:29:23 Thoracic segmental dysfunction 751911930 M99.02 Somatic dy sfunction of lumbar region 816604210 M99.03 Somatic dy sfunction of pelvic region 930289612 M99.05 Muscle spa sm of cervical muscle of neck 6875504411 04 M62.178 [id number] Nicole Bauer [address] [address] 08/14/2023 11:51:51 08/14/2023 12:36:07 Thoracic segmental dysfunction 700078059 M99.02 Somatic dy sfunction of lumbar region 249645365 M99.03 Somatic dy sfunction of pelvic region 601389550 M99.05 Muscle spa sm of cervical muscle of neck 0590567887 04 M62.838 Lumbar seg mental dysfunction 238410112 M99.03 [id number] Ashlyn Hanna [address] [address] 08/14/2023 12:27:45 08/14/2023 14:21:26 Chronic neck pain 4834937615 107 M54.2 [id number] Nicole Bauer [address] [address] 09/11/2023 10:20:02 09/11/2023 10:52:33 Thoracic segmental dysfunction 688436251 M99.02 Somatic dy sfunction of lumbar region 004987239 M99.03 Somatic dy sfunction of pelvic region 769272916 M99.05 Muscle spa sm of cervical muscle of neck 1388451973 04 M62.838 Lumbar seg mental dysfunction 154932265 M99.03 [id number] Ashlyn Hanna [address] [address] 09/11/2023 11:08:10 09/11/2023 12:06:02 Pain of right knee joint 0712037770 20600 M25.807 [id number] Nicole Bauer[address] [address] 11/04/2023 10:48:17 11/04/2023 11:22:26 Thoracic segmental dysfunction 298575704 M99.02 Somatic dy sfunction of lumbar region 893701567 M99.03 Somatic dy sfunction of pelvic region 081498890 M99.05 Muscle spa sm of cervical muscle of neck 8037447393 04 M62.838 Lumbar seg mental dysfunction 475777423 M99.03 [id number] Ashlyn Hanna [address] [address] 11/04/2023 12:25:23 11/04/2023 13:45:32 Chronic thoracic back pain 1684910321 29486 M54.6 [id number] Nicole Bauer[address] [address] 12/02/2023 09:50:53 12/02/2023 10:25:43 Thoracic segmental dysfunction 407478879 M99.02 Somatic dy sfunction of lumbar region 219264099 M99.03 Somatic dy sfunction of pelvic region 625098783 M99.05 Muscle spa sm of cervical muscle of neck 9749288612 04 M62.838 Lumbar seg mental dysfunction 068741913 M99.03 [id number] Ashlyn Hanna [address] [address] 12/02/2023 10:19:48 12/02/2023 11:24:24 Chronic neck pain 2317312802 107 M54.2 Low back pain 709213160 M54.50 [id number] Nicole Bauer [address] [address] 12/25/2023 10:21:15 12/25/2023 11:28:42 Thoracic segmental dysfunction 599637347 M99.02 Somatic dy sfunction of lumbar region 823504893 M99.03 Somatic dy sfunction of pelvic region 806585987 M99.05 Muscle spa sm of cervical muscle of neck 5436838837 04 M62.838 Lumbar seg mental dysfunction 199297268 M99.03 [id number] Ashlyn Hanna[address] [address] 12/25/2023 10:53:59 12/25/2023 11:58:24 Neck pain 29021164 M54.2 [id number] Nicole Bauer [address] [address] 02/17/2024 10:20:08 02/17/2024 11:00:07 Thoracic segmental dysfunction 558317867 M99.02 Somatic dy sfunction of lumbar region 450695112 M99.03 Somatic dy sfunction of pelvic region 957728027 M99.05 Lumbar seg mental dysfunction 698150495 M99.03 Pain of ri ght knee joint 0886323152 00279 M25.089 [id number] Ashlyn Hanna[address] [address] 02/17/2024 11:34:36 02/17/2024 13:48:16 Pain of right knee joint 9273503368 48274 M25.869 [id number] Nicole Bauer [address] [address] 03/18/2024 14:06:41 03/18/2024 14:30:02 Thoracic segmental dysfunction 149355177 M99.02 Somatic dy sfunction of lumbar region 816001000 M99.03 Somatic dy sfunction of pelvic region 888954200 M99.05 Lumbar seg mental dysfunction 631753861 M99.03 Pain of ri ght knee joint 2440834441 68142 M25.561 Muscle spa sm of cervical muscle of neck 4258595677 04 M62.059 [id number] Ashlyn Jacques[address] [address] 03/18/2024 14:31:58 03/18/2024 15:47:24 Low back pain 234844993 M54.50 [id number] Nicole Bauer[address] [address] 04/20/2024 10:49:53 04/20/2024 11:22:56 Thoracic segmental dysfunction 344468214 M99.02 Somatic dy sfunction of lumbar region 810491128 M99.03 Somatic dy sfunction of pelvic region 217386723 M99.05 Lumbar seg mental dysfunction 508205118 M99.03 Muscle spa sm of cervical muscle of neck 2126507230 04 M62.198 [id number] Ashlyn Jacques[address] [address] 04/20/2024 11:16:05 04/20/2024 13:45:44 Chronic thoracic back pain 6636566624 68979 M54.6 [id number] Nicole Bauer[address] [address] 05/27/2024 10:50:58 05/27/2024 11:23:34 Thoracic segmental dysfunction 328201186 M99.02 Somatic dy sfunction of lumbar region 938474500 M99.03 Somatic dy sfunction of pelvic region 421022817 M99.05 Lumbar seg mental dysfunction 101416850 M99.03 Muscle spa sm of cervical muscle of neck 2793199158 04 M62.479 [id number] CHERYL Luis s [address] [place] [address] 05/27/2024 11:25:40 05/27/2024 14:23:31 Low back pain 279708900 M54.50 [id number] Antione Sainz s [address] [place] [address] 08/03/2024 13:58:54 08/03/2024 16:15:47 Low back pain 197366959 M54.50 Pain of le ft hip joint 7981659139 61594 M25.552 Pain in ri ght hip joint 7237950181 63152 M25.071 [id number] Nicole Bauer DC Sainz s [address] [place] [address] 08/03/2024 14:58:21 08/03/2024 15:44:18 Low back pain 995146426 M54.50 Intermitte nt lower back stiffness associated with tight lumbar paraspinal s, gluts, and hamstrings . Will continue to treat with massage and chiropract ic care. Thoracic s egmental dysfunction 746392592 M99.02 Will continue to treat with chiropract ic care Somatic dy sfunction of pelvic region 733046931 M99.05 Will continue to treat with chiropract ic care Cervical s egmental dysfunction 322276097 M99.01 Will continue to treat with chiropract ic care Health Concerns Section Related Observation LastModified by Organization Detai ls LastModified Time None Recorded Concern Status LastModified by Organization Details LastModified Time None Recorded Advance Directives Directive None Recorded Payers Encounter Date Sequence Insurance Name Policy Number Policy Villanueva Covered Member ID Villanueva Member ID Guarantor Name 04/20/2024 1 Mack [facility] [id number] Dm Mahan [id number] Dm Mahan 05/27/2024 1 [facility] Jaz GUNN [facility] [id number] Dm Mahan [id number] Dm Mahan 05/27/2024 1 [employer] - [facility] [id number] Dm Mahan [id number] Dm Mahan 08/03/2024 1 [facility] - [employer] - [facility] [id number] Dm Mahan [id number] Dm Mahan 08/03/2024 1 R - [employer] - [facility] [id number] Dm Mahan [id number] Dm Mahan Notes Date Note Type Note Provider Name and Address Organization Details Recorded Time 04/20/2024 text/html Dm presents with no aches or pains today. Nicole Bauer DC [address], [place], [address], [place] [facility] 04/20/2024 11:22:42 04/20/2024 text/html Subjective: Chronic full spine tension. R knee pain. Pt. presents with recent:{{neck pain upper back pain* (R) shoulder pain (L) shoulder pain (R) elbow pain (L) elbow pain (R) wrist pain (L) wrist pain low back pain low back pain with sciatica (R) hip pain (L) hip pain (R) knee pain (L) knee pain (R) ankle pain (L) ankle pain (R) foot pain (L) foot pain}},{{neck pain upper back pain (R) shoulder pain (L) shoulder pain (R) elbow pain (L) elbow pain (R) wrist pain (L) wrist pain low back pain low back pain with sciatica (R) hip pain (L) hip pain (R) knee pain (L) knee pain (R) ankle pain (L) ankle pain (R) foot pain (L) foot pain low back#}},{{neck pain upper back pain (R) shoulder pain (L) shoulder pain (R) elbow pain (L) elbow pain (R) wrist pain (L) wrist pain low back pain low back pain with sciatica (R) hip pain (L) hip pain (R) knee pain* (L) knee pain (R) ankle pain (L) ankle pain (R) foot pain (L) foot pain}}, Duration:{{__ days __weeks __mo nths __years*}} PresentBest over last 24 hoursWorst over last 24 hours Pain Level{{0 1 2 3 4 5* 6 7 8 9 10}}{{ 0 1 2 3 4* 5 6 7 8 9 10}}{{0 1 2 3 4 5* 6 7 8 9 10} } Ashlyn Hanna [place] [address], [place], [address], [place] 04/20/2024 13:45:33 05/27/2024 text/html Dm presents with no major lower back or neck pain today. He is feeling good and says he wants to stay that way. Nicole Bauer [place] [address], [place], [address], [place] 05/27/2024 11:22:42 05/27/2024 text/html Subjective: Chronic full spine tension. R. knee. Pt. presents with recent:{{neck pain upper back pain (R) shoulder pain (L) shoulder pain (R) elbow pain (L) elbow pain (R) wrist pain (L) wrist pain low back pain low back pain with sciatica (R) hip pain (L) hip pain (R) knee pain* (L) knee pain (R) ankle pain (L) ankle pain (R) foot pain (L) foot pain}},{{neck pain upper back pain* (R) shoulder pain (L) shoulder pain (R) elbow pain (L) elbow pain (R) wrist pain (L) wrist pain low back pain low back pain with sciatica (R) hip pain (L) hip pain (R) knee pain (L) knee pain (R) ankle pain (L) ankle pain (R) foot pain (L) foot pain}},{{neck pain upper back pain (R) shoulder pain (L) shoulder pain (R) elbow pain (L) elbow pain (R) wrist pain (L) wrist pain low back pain low back pain with sciatica (R) hip pain (L) hip pain (R) knee pain (L) knee pain (R) ankle pain (L) ankle pain (R) foot pain (L) foot pain low back#}}, Duration:{{__ days __weeks __mo nths __years*}} PresentBest over last 24 hoursWorst over last 24 hours Pain Level{{0 1 2 3 4* 5 6 7 8 9 10}}{{ 0 1 2 3* 4 5 6 7 8 9 10}}{{0 1 2 3 4* 5 6 7 8 9 10} } Ashlyn Hanna, [place] [address], [place], [address], [place] 05/27/2024 14:23:21 08/03/2024 text/html Subjective: Pt. presents with recent:{{neck pain upper back pain* (R) shoulder pain (L) shoulder pain (R) elbow pain (L) elbow pain (R) wrist pain (L) wrist pain low back pain low back pain with sciatica (R) hip pain (L) hip pain (R) knee pain (L) knee pain (R) ankle pain (L) ankle pain (R) foot pain (L) foot pain}},{{neck pain upper back pain (R) shoulder pain (L) shoulder pain (R) elbow pain (L) elbow pain (R) wrist pain (L) wrist pain low back pain low back pain with sciatica* (R) hip pain (L) hip pain (R) knee pain (L) knee pain (R) ankle pain (L) ankle pain (R) foot pain (L) foot pain}},{{neck pain upper back pain (R) shoulder pain (L) shoulder pain (R) elbow pain (L) elbow pain (R) wrist pain (L) wrist pain low back pain low back pain with sciatica (R) hip pain* (L) hip pain (R) knee pain (L) knee pain (R) ankle pain (L) ankle pain (R) foot pain (L) foot pain}},{{neck pain upper back pain (R) shoulder pain (L) shoulder pain (R) elbow pain (L) elbow pain (R) wrist pain (L) wrist pain low back pain low back pain with sciatica (R) hip pain (L) hip pain* (R) knee pain (L) knee pain (R) ankle pain (L) ankle pain (R) foot pain (L) foot pain}} Duration:{{__ days __weeks __mo nths __years __7 days#}} PresentBest over last 24 hoursWorst over last 24 hours Pain Level{{0 1 2 3* 4 5 6 7 8 9 10}}{{ 0 1 2 3 4 5* 6 7 8 9 10}}{{0 1 2 3 4 5* 6 7 8 9 10} } Antione kunz, [place] - [place] 08/03/2024 16:15:23 08/03/2024 text/html Dm presents with left lower back pain. He reports 2 days ago he was pulling at his boat and he hurt his back. The pain has decreased over the past two days. He describes the pain as intermittent, achy , sore, stiff and localized. His pain increases with bending, lifting, and sitting. He just came from massage and reports he feels better. He rates his pain as a 2/10. Dm reports he has had no major issues with his neck. It has been about a year since his last injection. Nicole Bauer [place] [address], [place], [address], [place] - [place] 08/03/2024 15:44:03
--- OUTSIDE RECORDS SUMMARY | 2024-08-05 14:40 | XMS_ITS | Clinical Summary ---
Author Organization [facility] Address [facility] [place] [address] Care Team Providers Care Supervisor Pipeline Name Role Phone Tom Travis MD Primary Care Provider [phone] Allergies Active Allergy Reactions Criticality Noted Date Comments Penicillins Hives Medium 06/10/2019 Medications fenofibrate nanocrystallized (TRICOR) 145 mg tablet Take 145 mg by mouth wind instrument repairer before breakfast 06/01/19 20 Active metFORMIN XR (GLUCOPHAGE XR) 500 mg 24 hr tablet 2,000 mg nightly 06/01/19 20 Active naproxen (NAPROSYN) 500 mg tablet 06/01/19 20 Active omeprazole (PriLOSEC) 20 mg capsule Take 20 mg by mouth wind instrument repairer before breakfast 06/01/19 20 Active Active Problems Problem Noted Date Diagnosed Date Arthropathy of hand 06/09/2019 Osteoarthritis 06/09/2019 Derangement of knee 06/09/2019 Disorder of shoulder 06/09/2019 Incomplete tear of rotator cuff 06/09/2019 Knee pain 06/09/2019 Shoulder joint pain 06/09/2019 Synovitis and tenosynovitis 06/09/2019 Nontraumatic complete tear of right rotator cuff 06/09/2019 Overview (06/09/2019): Added automatically from request for surgery [id number] Biceps tendinitis of right shoulder 06/09/2019 Overview (06/09/2019): Added automatically from request for surgery [id number] Surgical History Surgery Date Site/Laterality Comments KNEE SURGERY Right COLONOSCOPY NOSE SURGERY 04/2020 balloon dialation Medical History Medical History Date Comments Hyperlipidemia DM (diabetes mellitus) (HCC) Vertigo, benign paroxysmal GERD (gastroesophageal reflux disease) Type 2 diabetes mellitus (HCC) Social History Tobacco Use Types Packs/Day Years Used Date Smoking Tobacco: Never Smokeless Tobacco: Never Tobacco Cessation:Counseling Given: No Alcohol Use Standard Drinks/Week Comments Not Currently 0 (1 standard drink = 0.6 oz pur e alcohol) rare Sex and Gender Information Value Date Recorded Sex Assigned at Not on file Legal Sex 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 Gender Identity Not on file Sexual Orientation Not on file Obstetrics History Last Filed Vital Signs Vital Sign Reading Time Taken Comments Blood Pressure 130/89 06/15/2019 11:00 AM PAYROLL ACCOUNTING MANAGER Pulse 75 06/15/2019 11:00 AM PAYROLL ACCOUNTING MANAGER Temperature 36 C (96.8 F) 06/15/2019 10:19 AM PAYROLL ACCOUNTING MANAGER Respiratory Rate 14 06/15/2019 11:00 AM PAYROLL ACCOUNTING MANAGER Oxygen Saturation 97% 06/15/2019 11:00 AM PAYROLL ACCOUNTING MANAGER Inhaled Oxygen Concentration - - Weight 81.6 kg (180 lb) 06/10/2019 2:40 PM PAYROLL ACCOUNTING MANAGER Height 177.8 cm (5' 10 ) 06/10/2019 2:40 PM PAYROLL ACCOUNTING MANAGER Body Mass Index 25.83 06/10/2019 2:40 PM PAYROLL ACCOUNTING MANAGER Plan of Treatment Not on file Medical Devices Implanted Type Area Paleontology Teacher Device Identifier Shelf Expiration Date Model / Serial / Lot [employer] [id number] Swivelock C 4.75mm 19.1mm Closed Eyelet Vent [place] Suture - [id number] Implanted:Qty: 1 on 06/15/2019 by Ari Mayers MD at [facility] [employer] 04/18/2023 [id number] / / [id number] [employer] Ar-2290 Fiberloop 3.2mm Drill Pin Needle [place] Cannula Kit Suture - [id number] Implanted:Qty: 1 on 06/15/2019 by Ari Mayers MD at [facility] [employer] 12/18/2023 AR-[id number] / / [id number] Insurance [employer] Care Teams Supervisor Pipeline Relationship Specialty Start Date End Date Tom Travis MD [address] [address] PCP - General Family Medicine 06/09/19
== END 2024-08-05 13:15 | disposition home or self-care (01) ==
PROVIDERS: PCP Family Medicine; Visit Provider Family Medicine
DX: G56.03 Carpal tunnel syndrome, bilateral upper limbs (principal)
CPT/HCPCS: 95886; 95911